=== PATIENT | male | born 1955 | race Caucasian/White ===

== ENCOUNTER 2018-02-17 15:31 | Observation (INO) | payer OTHER ==
[2018-02-17 16:28] VITALS: BMI 34.0
--- NOTE | 2018-02-17 17:07 | ED PDOC ---
Arrival/HPI - General Historian: Patient - History of Present Illness Narrative History of Present Illness (Text): 02/17/18 16:55 62 y o male Past medical history liver transplant (2005; on Procrit therapy), hypertension, DM2, hypothyroidism presents to the Emergency department for elevated blood pressure. States that he was not feeling well this am, reports feeling that the L side of his face feels hot, observed with a portable fan at bedside for relief of symptoms. Pt also reported b/l blurry vision this am that was intermittent throughout the day, currently resolved at this time. Pt states he checked his BP at 9:30 this am and it was 187/95. Pt states he also took am dose of Carvedilol 6.25 mg. States he later checked blood pressure at 1:38 pm and it was 213/134, was concerned and thus decided to come to the Emergency department. Denies associated headache, current vision changes, dizziness, syncope, chest pain, sob, nausea, vomiting, d/c, abd pain, urinary complaints, or other symptoms. 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 Past medical history: liver transplant (2005; on Procrit therapy), hypertension, DM2, hypothyroidism PSurgHx: liver transplant, removal of basal cell carcinoma on nose, hernia repair Allergies: PCN (rash) Home meds: Tacrolimus 0.5 mg, ASA 81, Tenofovir disoprox 300 mg, Vit D3, Synthroid 100 mcg, Omeprazole 20 mg, Carvedilol 6.25 mg bid, Clonidine 0.1 mg prn, Loratadine 10 mg prn, Tradozone 50 mg prn, Novolin 40-40-40, Trujeo 60-70 U/day Fam hx: denies Soc hx: former smoker quit 12 y ago; denies EtOH or illicit drug use PMD: Dr. Jeremy Rosario Time/Duration: Other (8 hrs) Symptom Onset: Sudden Symptom Course: Intermittent Quality: Other (Hot) Severity Level: Moderate Activities at Onset: Rest Context: Home <Jose Fairbanks - Last Filed: 02/17/18 19:34> <Lara Guzman - Last Filed: 02/17/18 19:40> - General Chief Complaint: High Blood Pressure Time Seen by Provider: 02/17/18 15:33 Past Medical History - Provider Review Nursing Documentation Reviewed: Yes - Travel History Have you recently traveled outside [place] w/in the past 3 mons?: No - Infectious Disease Hx of Infectious Diseases: None - Cardiac Hx Cardiac Disorders: Yes Hx Hypertension: Yes - Pulmonary Hx Respiratory Disorders: No - Neurological Hx Neurological Disorder: No - HEENT Hx HEENT Disorder: No - Renal Hx Renal Disorder: No - Endocrine/Metabolic Hx Endocrine Disorders: Yes Hx Diabetes Mellitus Type 2: Yes Hx Hypothyroidism: Yes - Hematological/Oncological Hx Hepatitis B: Yes Other/Comment: liver transplant 2005 - Integumentary Hx Dermatological Disorder: No - Musculoskeletal/Rheumatological Hx Musculoskeletal Disorders: Yes Hx Osteoarthritis: Yes - Gastrointestinal Hx Gastrointestinal Disorders: No - Genitourinary/Gynecological Hx Genitourinary Disorders: No - Psychiatric Hx Psychophysiologic Disorder: Yes Hx Depression: Yes Hx Substance Use: No - Surgical History Hx Liver Transplant: Yes (2005) Other/Comment: Basal cell carcinoma (nose) 2008. hernia repair 1990 - Anesthesia Hx Anesthesia: Yes Hx Anesthesia Reactions: No Hx Malignant Hyperthermia: No <Jose Fairbanks - Last Filed: 02/17/18 19:34> Family/Social History - Physician Review Nursing Documentation Reviewed: Yes Family/Social History: No Known Family HX Smoking Status: Former Smoker Hx Alcohol Use: No Hx Substance Use: No <Jose Fairbanks - Last Filed: 02/17/18 19:34> Allergies/Home Meds <Jose Fairbanks - Last Filed: 02/17/18 19:34> <Lara Guzman - Last Filed: 02/17/18 19:40> Allergies/Adverse Reactions: Allergies Penicillins Allergy (Verified 08/08/15 16:39) ANAPHYLAXIS Home Medications: Home Meds Medication Instructions Recorded Confirmed Ascorbic Acid [Vitamin C] 500 mg PO DAILY 05/16/14 05/16/14 Aspirin [Aspirin Low Dose] 81 mg PO DAILY 05/16/14 05/16/14 Calcium [Oyster Calcium] 500 mg PO BID 05/16/14 05/16/14 Canagliflozin [Invokana] 100 mg PO DAILY 05/16/14 05/16/14 Ergocalciferol (Vitamin D2) 50,000 iu PO QWK 05/16/14 05/16/14 [Vitamin D] Levothyroxine [Synthroid] 0.1 mg PO DAILY 05/16/14 05/16/14 Omeprazole 20 mg PO DAILY 05/16/14 05/16/14 Tacrolimus 1 mg PO BID 05/16/14 05/16/14 Vitamin B Complex & Vitamin C 1 tab PO DAILY 05/16/14 05/16/14 [Strovite] amLODIPine [Norvasc] 10 mg PO DAILY 05/16/14 05/16/14 Review of Systems - Physician Review All systems were reviewed & negative as marked: Yes - Review of Systems Constitutional: Fatigue. absent: Fevers, Night Sweats Eyes: Vision Changes ENT: absent: Hearing Changes, Tinnitus Respiratory: absent: SOB, Cough, Sputum, Wheezing Cardiovascular: absent: Chest Pain, Palpitations, Edema, Calf Pain, SPIVEY, Syncope Gastrointestinal: absent: Abdominal Pain, Stool Changes, Constipation, Diarrhea, Nausea, Vomiting Genitourinary Male: absent: Dysuria, Frequency, Urinary Output Changes Musculoskeletal: absent: Arthralgias, Back Pain, Myalgias Skin: absent: Rash, Pruritis Neurological: absent: Headache, Dizziness, Focal Weakness, Gait Changes, Speech Changes Endocrine: Diaphoresis Psychiatric: absent: Anxiety <Jose Fairbanks - Last Filed: 02/17/18 19:34> Physical Exam Vital Signs Reviewed: Yes Vital Signs Temp Pulse Resp BP Pulse Ox 02/17/18 16:28 98.1 F 76 18 175/80 H 95 Temperature: Afebrile Blood Pressure: Hypertensive Pulse: Regular Respiratory Rate: Normal Appearance: Positive for: Well-Appearing, Non-Toxic, Uncomfortable Pain Distress: None Mental Status: Positive for: Alert and Oriented X 3 - Systems Exam Head: Present: Atraumatic, Normocephalic. No: Tenderness Pupils: Present: PERRL Extroacular Muscles: Present: EOMI Conjunctiva: Present: Normal Mouth: Present: Moist Mucous Membranes Neck: Present: Normal Range of Motion. No: JVD, Lymphadenopathy Respiratory/Chest: Present: Clear to Auscultation, Good Air Exchange. No: Res piratory Distress, Accessory Muscle Use, Wheezes, Rales, Rhonchi Cardiovascular: Present: Regular Rate and Rhythm, Normal S1, S2. No: Murmurs, Rub, Gallop Abdomen: Present: Normal Bowel Sounds. No: Tenderness, Distention, Mass/Organomegaly Back: Present: Normal Inspection. No: Paraspinal Tenderness Upper Extremity: Present: Normal Inspection, Normal ROM, NORMAL PULSES, Neurovascularly Intact, Capillary Refill < 2s, Norm 2-Pt Discrimination. No: Cyanosis, Edema, Temperature Abnormalties Lower Extremity: Present: Normal Inspection, NORMAL PULSES, Normal ROM, Neurovas cularly Intact, Capillary Refill < 2 s. No: Edema, CALF TENDERNESS, Cyanosis, Tenderness, Temperature Abnormalties Neurological: Present: GCS=15, CN II-XII Intact, Speech Normal, Motor Func Grossly Intact, Normal Sensory Function, Normal Cerebellar Funct, Norm Deep Tendon Reflexes, Gait Normal, Memory Normal, Normal 2Pt Descrimination Skin: Present: Warm, Dry, Normal Color. No: Rashes Psychiatric: Present: Alert, Oriented x 3, Normal Insight, Normal Concentration <Jose Fairbanks - Last Filed: 02/17/18 19:34> Vital Signs Temp Pulse Resp BP Pulse Ox 02/17/18 18:00 74 18 172/78 H 96 02/17/18 16:28 98.1 F 76 18 175/80 H 95 <Lara Guzman - Last Filed: 02/17/18 19:40> Medical Decision Making ED Course and Treatment: 02/17/18 17:12 62 y o male Past medical history liver transplant (2005; on Procrit therapy), hypertension, DM2, hypothyroidism presents to the Emergency department for elevated blood pressure. Plan: -Labs -EKG -Chest X-ray -Head CT Will continue to monitor. BP 175/80. Will continue to follow. 02/17/18 19:29 CT negative for acute findings/hemorrhage. Troponin neg x1. CBC, CMP wnl. Endorsed case to medical administrative. Admission to be under Dr. Zhang's service. Pt to be admitted for hypertension urgency, TIA. - RAD Interpretation Radiology Orders: 02/17/18 16:49 CHEST ONE VIEW [RAD] Stat 02/17/18 16:52 HEAD W/CONTRAST [CT] Stat HEAD W/O CONTRAST [CT] Stat <Jose Fairbanks - Last Filed: 02/17/18 19:34> ED Course and Treatment: 02/17/18 19:39 Patient seen by resident and then evaluated by me. Complaining of blurry vision associated with hypertension today. Also complaining of numbness to L side of face. Neurologically intact. NIHSS:0. Given aspirin. BP spontaneously improved in emergency department and symptoms also improved. Will transfer to observation for further eval - Lab Interpretations Lab Results: 02/17/18 18:26 02/17/18 18:26 Lab Results 02/17/18 18:26: Sodium 138, Potassium 4.6, Chloride 102, Carbon Dioxide 28, Anion Gap 13, BUN 16, Creatinine 1.0, Est GFR ( Amer) > 60, Est GFR (Non- Af Amer) > 60, Random Glucose 166 H, Calcium 9.6, Magnesium 1.5 L, Total Bilirubin 0.5, AST 35, ALT 40, Alkaline Phosphatase 107, Troponin I < 0.01, Total Protein 8.1, Albumin 4.2, Globulin 3.9, Albumin/Globulin Ratio 1.1 02/17/18 18:26: PT 10.9, INR 0.96, APTT 28.4 02/17/18 18:26: WBC 9.8, RBC 6.74 H, Hgb 12.8 L, Hct 39.7 L, MCV 58.9 L, MCH 19.0 L, MCHC 32.2, RDW 17.8 H, Plt Count 173, Gran % 59.0, Lymph % (Auto) 28.1, Kleberg % (Auto) 5.9, Eos % (Auto) 6.9 H, Baso % (Auto) 0.1, Gran # 5.80, Lymph # (Auto) 2.8, Kleberg # (Auto) 0.6, Eos # (Auto) 0.7, Baso # (Auto) 0.01 - RAD Interpretation Radiology Orders: 02/17/18 16:49 CHEST ONE VIEW [RAD] Stat 02/17/18 16:52 HEAD W/O CONTRAST [CT] Stat - Medication Orders Current Medication Orders: Discontinued Medications Aspirin (Aspirin) 325 mg PO STAT STA Stop: 02/17/18 19:01 Magnesium Oxide (Mag-Ox) 400 mg PO STAT STA Stop: 02/17/18 18:57 Last Admin: 02/17/18 19:31 Dose: 400 mg <Lara Guzman - Last Filed: 02/17/18 19:40> Disposition/Present on Arrival - Present on Arrival Any Indicators Present on Arrival: Yes History of DVT/PE: No History of Uncontrolled Diabetes: Yes Urinary Catheter: No History of Decub. Ulcer: No History Surgical Site Infection Following: None - Disposition Have Diagnosis and Disposition been Completed?: Yes Disposition Time: 19:33 Patient Plan: Observation <Jose Fairbanks - Last Filed: 02/17/18 19:34> <Lara Guzman - Last Filed: 02/17/18 19:40> - Disposition Diagnosis: Hypertensive urgency, TIA (transient ischemic attack) Disposition: HOSPITALIZED Condition: GUARDED Forms: [facility] (Frisian)
--- NOTE | 2018-02-17 18:04 | CT ---
Date of service: 02/17/2018 PROCEDURE: CT HEAD WITHOUT CONTRAST. HISTORY: blurry vision, htn COMPARISON: Noncontrast head CT performed 01/11/15 TECHNIQUE: Axial computed tomography images were obtained through the head/brain without intravenous contrast. Radiation dose: Total exam DLP = 861.04 mGy-cm. This CT exam was performed using one or more of the following dose reduction techniques: Automated exposure control, adjustment of the mA and/or kV according to patient size, and/or use of iterative reconstruction technique. FINDINGS: HEMORRHAGE: No intracranial hemorrhage. BRAIN: Diffuse atrophy with prominence of the ventricles and sulci noted. No mass effect or edema. Intracranial atherosclerosis. Several small foci of air noted predominantly adjacent to the cavernous sinus. The bhakta-white matter differentiation appears intact. Please note that MRI with diffusion imaging is more sensitive in the detection of acute ischemic event. VENTRICLES: No hydrocephalus. CALVARIUM: Unremarkable. PARANASAL SINUSES: Unremarkable as visualized. No significant inflammatory changes. MASTOID AIR CELLS: Unremarkable as visualized. No inflammatory changes. OTHER FINDINGS: None. IMPRESSION: Generalized atrophy. Nonspecific white matter changes. Several small foci of air noted predominantly adjacent to the cavernous sinus; this can be seen in the setting recent IV injection. Correlate clinically.
[2018-02-17 18:32] LABS: BASO # 0.01 K/mm3 (0.0-2.0); BASO % 0.1 % (0.0-3.0); EOS # 0.7 (0.0-0.7); EOS % 6.9 % (1.5-5.0); HEMOGLOBIN 12.8 g/dL (14.0-18.0); LYMPH # 2.8 (1.2-3.4); LYMPH % 28.1 % (22.0-35.0); MEAN CELL VOLUME 58.9 fl (80.0-105.0); MEAN CORPUSCULAR HGB CONC 32.2 g/dl (31.0-37.0); MONO # 0.6 (0.1-0.6); MONO % 5.9 % (1.0-6.0); PLATELET COUNT 173 10^3/uL (120.0-450.0); RBC 6.74 10^6/uL (3.5-6.1); RED CELL DISTRIBUTION WIDTH 17.8 % (11.5-14.5); WHITE BLOOD COUNT 9.8 10^3/uL (4.5-11.0)
[2018-02-17 18:42] LABS: ALB/GLOB RATIO 1.1 (1.1-1.8); ALBUMIN 4.2 g/dL (3.0-4.8); ALT/SGPT 40 U/L (7-56); AST/SGOT 35 U/L (17-59); BLOOD UREA NITROGEN 16 mg/dL (7-21); CALCIUM 9.6 mg/dL (8.4-10.5); GFR NON-AFRICAN AMERICAN > 60; INR 0.96; PARTIAL THROMBOPLASTIN TIME 28.4 Seconds (25.1-36.5); PROTHROMBIN TIME 10.9 SECONDS (9.4-12.5)
[2018-02-17 18:53] LABS: TROPONIN I < 0.01 ng/mL
[2018-02-17] MEDS ORDERED: Magnesium Oxide 400 mg Tab UD PO STA (18:56)
--- NOTE | 2018-02-17 20:18 | CARD ---
APPROVED REPORT Date of service: 02/17/2018 EKG Measurement Heart [id number] <Conclusion> Normal sinus rhythm Possible Inferior infarct, age undetermined Abnormal ECG
[2018-02-17] MEDS ORDERED: Dextrose 50% SYRINGE Inj (50 ml) IV PRN (21:28)
--- NOTE | 2018-02-17 21:45 | CP.PCM.HP ---
<Griselda Davis - Last Filed: 02/18/18 05:55> History of Present Illness - History of Present Illness History of Present Illness: Griselda Daivs, PGY1 Hospital H&P This is a 62 year old male with PMH of DM2, HTN, hypothyroidism and liver transplant in 2005 on tacrolimus and procrit presenting to the ED for one day history of elevated blood pressure. He states his BP at 9am this morning was 1 87/95 and associated with B/L blurry vision and left facial warmth. He says his blurry vision is a symptoms he has not had in the past but admits to two year history of left facial warmth that worsens with elevated blood pressure. He took his morning dose of 6.25mg carvedilol and rechecked his BP in the afternoon which continued to be elevated at 213/134. 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 He says his BP has been on the higher side since this change. At time of examination patient says blurry vision symptoms had completely resolved. He denies CP, SOB, headaches, tinnitis, fevers, nausea, vomiting, back pain, abdominal pain, melena, hematochezia, hematemesis, urinary complaints, numbness, tingling, swelling, muscle weakness, sensory deficits, recent travel, sickness, trauma, and lifestyle changes including diet and weight. 12 point ROS noted above, otherwise unremarkable. PMD: Dr. Jeremy Rosario PMH: DM2, HTN, hypothyroidism and liver transplant in 2005 on tacrolimus and procrit SH: former smoker quit 12 y ago; denies EtOH or illicit drug use Sx: liver transplant in 2006, removal of basal cell carcinoma on nose, hernia repair All: PCN (rash) FH: [place] Meds: Tacrolimus 1.5 mg AM and 1mg PM, ASA 81 daily, Tenofovir disoprox 300 mg daily, Vit D3, Synthroid 100 mcg daily, Omeprazole 20 mg daily, Carvedilol 6.25 mg bid, Clonidine 0.1 mg prn (uses rarely), Loratadine 10 mg prn, Tradozone 50 mg prn, Novolin 40-40-40, insulin glargine 60 or 70 units per day Present on Admission - Present on Admission Any Indicators Present on Admission: Yes History of Uncontrolled Diabetes: Yes Past Patient History - Infectious Disease Hx of Infectious Diseases: None - Past Medical History & Family History Past Medical History?: Yes - Past Social History Smoking Status: Former Smoker - CARDIAC Hx Cardiac Disorders: Yes Hx Hypertension: Yes - PULMONARY Hx Respiratory Disorders: No - NEUROLOGICAL Hx Neurological Disorder: No - HEENT Hx HEENT Problems: No - RENAL Hx Chronic Kidney Disease: No - ENDOCRINE/METABOLIC Hx Endocrine Disorders: Yes Hx Diabetes Mellitus Type 2: Yes Hx Hypothyroidism: Yes - HEMATOLOGICAL/ONCOLOGICAL Hx Hepatitis B: Yes Other/Comment: liver transplant 2005 - INTEGUMENTARY Hx Dermatological Problems: No - MUSCULOSKELETAL/RHEUMATOLOGICAL Hx Musculoskeletal Disorders: Yes Hx Osteoarthritis: Yes - GASTROINTESTINAL Hx Gastrointestinal Disorders: No - GENITOURINARY/GYNECOLOGICAL Hx Genitourinary Disorders: No - PSYCHIATRIC Hx Psychophysiologic Disorder: Yes Hx Depression: Yes Hx Substance Use: No - SURGICAL HISTORY Hx Liver Transplant: Yes (2005) Other/Comment: Basal cell carcinoma (nose) 2008. hernia repair 1990 - ANESTHESIA Hx Anesthesia: Yes Hx Anesthesia Reactions: No Hx Malignant Hyperthermia: No Meds Allergies/Adverse Reactions: Allergies Allergy/AdvReac Type Severity Reaction Status Date / Time Penicillins Allergy ANAPHYLAXIS Verified 02/18/18 14:19 Physical Exam - Constitutional Appears: No Acute Distress - Head Exam Head Exam: ATRAUMATIC, NORMAL INSPECTION - Eye Exam Eye Exam: EOMI Pupil Exam: PERRL - ENT Exam ENT Exam: Mucous Membranes Moist - Neck Exam Neck exam: Positive for: Normal Inspection - Respiratory Exam Respiratory Exam: Clear to Auscultation Bilateral, NORMAL BREATHING PATTERN. absent: Accessory Muscle Use, Wheezes, Respiratory Distress - Cardiovascular Exam Cardiovascular Exam: REGULAR RHYTHM, +S1, +S2. absent: Tachycardia - GI/Abdominal Exam GI & Abdominal Exam: Normal Bowel Sounds, Soft. absent: Distended, Firm, Guarding, Tenderness - Extremities Exam Extremities exam: Positive for: calf tenderness, normal inspection, pedal pulses present Additional comments: muscle strength B/L in upper and lower extremities is 5/5, no motor or sensory deficits appreciated. Ambulating without difficulty. RLE has 5x5cm wound that has yellowish visible puss, no active bleeding. LLE has 7x5xm erythematous discoloration that is not actively bleeding and no pus appreciated. - Back Exam Back exam: NORMAL INSPECTION. absent: CVA tenderness (L), CVA tenderness (R) - Neurological Exam Neurological exam: Alert, CN II-XII Intact, Oriented x3 - Skin Skin Exam: Normal Color, Warm Results - Vital Signs Recent Vital Signs: Last Vital Signs Temp 98.1 F 02/17/18 16:28 Pulse 71 02/17/18 19:40 Resp 18 02/17/18 19:40 BP 157/89 H 02/17/18 19:40 Pulse Ox 96 02/17/18 19:40 - Labs Result Diagrams: 02/17/18 18:26 02/17/18 18:26 Labs: Laboratory Results - last 24 hr 02/17/18 02/17/18 02/17/18 18:26 18:26 18:26 WBC 9.8 RBC 6.74 H Hgb 12.8 L Hct 39.7 L MCV 58.9 L MCH 19.0 L MCHC 32.2 RDW 17.8 H Plt Count 173 Gran % 59.0 Lymph % (Auto) 28.1 Power % (Auto) 5.9 Eos % (Auto) 6.9 H Baso % (Auto) 0.1 Gran # 5.80 Lymph # (Auto) 2.8 Power # (Auto) 0.6 Eos # (Auto) 0.7 Baso # (Auto) 0.01 PT 10.9 INR 0.96 APTT 28.4 Sodium 138 Potassium 4.6 Chloride 102 Carbon Dioxide 28 Anion Gap 13 BUN 16 Creatinine 1.0 Est GFR ( Amer) > 60 Est GFR (Non-Af Amer) > 60 Random Glucose 166 H Calcium 9.6 Magnesium 1.5 L Total Bilirubin 0.5 AST 35 ALT 40 Alkaline Phosphatase 107 Troponin I < 0.01 Total Protein 8.1 Albumin 4.2 Globulin 3.9 Albumin/Globulin Ratio 1.1 Assessment & Plan - Assessment and Plan (Free Text) Assessment: This is a 62 year old male with PMH of DM2, HTN, hypothyroidism and liver transplant in 2005 on tacrolimus and procrit presenting to the ED for one day history of elevated blood pressure. Plan: Hypertensive urgency -had symptoms consistent with hypertensive emergency (blurry vision) earlier in the day -less likely TIA -allow permissive HTN for 24 hours up to 200/110 - hold coreg -echo done last month at [facility] - obtain records -carotid dopplers pending -neurology on consult, Dr. Sherwood -continue home hypertension medications - carvedilol 6.25mg BID -unsure why patient's losartan was stopped recently as patient has DM. Patient will likely need to be restarted for diabetic kidney protection and hypertension control. Previously on losartan 100mg daily -CT head is negative for acute findings, f/u official read -troponin, EKG reviewed, unremarkable Hx of liver transplant -continue procrit, tenofovir, tacrolimus -wound care for lower extremity wounds Hypomagnesia -repleted, f/u AM labs Anemia -microcytic, on procrit therapy -iron studies pending Hx of DM -levemir HS 20 units -insulin medium sliding scale ACHS -A1c pending Hx of hypothyroidism -continue home synthroid dose -TSH pending PPX/Diet -protonix and lovenox -HHD Patient seen and case discussed with attending, Dr. Bishop <Isak Bishop - Last Filed: 02/18/18 18:59> Results - Vital Signs Recent Vital Signs: Last Vital Signs Temp 98.1 F 02/18/18 14:00 Pulse 80 02/18/18 12:29 Resp 18 02/18/18 17:32 BP 152/74 H 02/18/18 17:00 Pulse Ox 96 02/18/18 17:00 - Labs Result Diagrams: 02/18/18 04:15 02/18/18 04:15 Labs: Laboratory Results - last 24 hr 02/18/18 02/18/18 02/18/18 04:15 04:15 04:15 WBC 7.2 D RBC 6.29 H Hgb 11.8 L Hct 36.8 L MCV 58.5 L MCH 18.8 L MCHC 32.1 RDW 17.5 H Plt Count 134 Gran % 51.1 Lymph % (Auto) 36.2 H Power % (Auto) 5.8 Eos % (Auto) 6.6 H Baso % (Auto) 0.3 Gran # 3.69 Lymph # (Auto) 2.6 Power # (Auto) 0.4 Eos # (Auto) 0.5 Baso # (Auto) 0.02 Sodium 135 Potassium 4.4 Chloride 102 Carbon Dioxide 26 Anion Gap 11 BUN 17 Creatinine 1.1 Est GFR ( Amer) > 60 Est GFR (Non-Af Amer) > 60 Random Glucose 359 H* D Hemoglobin A1c 10.6 H Calcium 9.0 Phosphorus 3.1 Magnesium 1.4 L Iron TIBC % Saturation Total Bilirubin 0.3 AST 25 ALT 32 Alkaline Phosphatase 100 Troponin I < 0.01 Total Protein 7.2 Albumin 3.7 Globulin 3.5 Albumin/Globulin Ratio 1.0 L Vitamin B12 304 TSH 3rd Generation 02/18/18 02/18/18 02/18/18 04:15 04:15 12:00 WBC RBC Hgb Hct MCV MCH MCHC RDW Plt Count Gran % Lymph % (Auto) Power % (Auto) Eos % (Auto) Baso % (Auto) Gran # Lymph # (Auto) Power # (Auto) Eos # (Auto) Baso # (Auto) Sodium Potassium Chloride Carbon Dioxide Anion Gap BUN Creatinine Est GFR ( Amer) Est GFR (Non-Af Amer) Random Glucose Hemoglobin A1c Calcium Phosphorus Magnesium Iron 45 TIBC 407 % Saturation 11 L Total Bilirubin AST ALT Alkaline Phosphatase Troponin I < 0.01 Total Protein Albumin Globulin Albumin/Globulin Ratio Vitamin B12 TSH 3rd Generation 1.48 Attending/Attestation - Attestation I have personally seen and examined this patient.: Yes I have fully participated in the care of the patient.: Yes I have reviewed all pertinent clinical information: Yes
[2018-02-17] MEDS ORDERED: Insulin Reg-MEDIUM-Coverage SC SCH (22:00)
[2018-02-18] MEDS: Insulin Detemir 100 units/ml Vial (Levemir) SC SCH ×2 (00:06→23:45)
[2018-02-18 05:06] LABS: BASO # 0.02 K/mm3 (0.0-2.0); BASO % 0.3 % (0.0-3.0); EOS # 0.5 (0.0-0.7); EOS % 6.6 % (1.5-5.0); GRAN # 3.69 (1.4-6.5); GRAN % 51.1 % (50.0-68.0); HEMOGLOBIN 11.8 g/dL (14.0-18.0); LYMPH # 2.6 (1.2-3.4); LYMPH % 36.2 % (22.0-35.0); MEAN CELL VOLUME 58.5 fl (80.0-105.0); MEAN CORPUSCULAR HEMOGLOBIN 18.8 pg (25.0-35.0); MEAN CORPUSCULAR HGB CONC 32.1 g/dl (31.0-37.0); MONO # 0.4 (0.1-0.6); MONO % 5.8 % (1.0-6.0); PLATELET COUNT 134 10^3/uL (120.0-450.0); RBC 6.29 10^6/uL (3.5-6.1); RED CELL DISTRIBUTION WIDTH 17.5 % (11.5-14.5); WHITE BLOOD COUNT 7.2 10^3/uL (4.5-11.0)
[2018-02-18 05:17] LABS: IRON 45 ug/dL (45-180)
[2018-02-18 05:27] LABS: % IRON SATURATION 11 % (20-55); TOTAL IRON BINDING CAPACITY 407 ug/dL (261-462)
[2018-02-18 05:32] LABS: TROPONIN I < 0.01 ng/mL
[2018-02-18] MEDS ORDERED: Pantoprazole 20 mg EC Tab PO SCH (06:00)
[2018-02-18] MEDS: Levothyroxine 100 MCG TAB PO SCH (06:06)
[2018-02-18 06:09] LABS: ALBUMIN 3.7 g/dL (3.0-4.8); ALT/SGPT 32 U/L (7-56); AST/SGOT 25 U/L (17-59); BLOOD UREA NITROGEN 17 mg/dL (7-21); GFR NON-AFRICAN AMERICAN > 60
[2018-02-18] MEDS ORDERED: Insulin Regular 1 UNITS/0.01 ML ML SC STA (06:14)
[2018-02-18] MEDS ORDERED: Insulin Regular 1 UNITS/0.01 ML ML ONE ×3 (06:26→18:01)
[2018-02-18] MEDS: Insulin Reg-HIGH-Coverage SC SCH ×3 (08:00→18:14)
[2018-02-18] MEDS: Pantoprazole 40 mg EC Tab PO SCH (09:07)
[2018-02-18] MEDS: Enoxaparin 40 mg Syringe SC SCH (09:09)
--- NOTE | 2018-02-18 10:33 | RAD ---
Date of service: 02/17/2018 PROCEDURE: CHEST RADIOGRAPH, 1 VIEW HISTORY: high blood pressure COMPARISON: 01/24/2015. FINDINGS: LUNGS: The lungs are well inflated and clear. There is mild pulmonary venous congestion. No focal consolidation. PLEURA: No pneumothorax or pleural effusion. CARDIOVASCULAR: Mild cardiomegaly. No aortic atherosclerotic calcifications present. OSSEOUS STRUCTURES: Within normal limits for the patient's age. VISUALIZED UPPER ABDOMEN: Normal. OTHER FINDINGS: None. IMPRESSION: No active pulmonary disease.
--- NOTE | 2018-02-18 11:46 | CP.PCM.CON ---
<Kenyon Covington - Last Filed: 02/18/18 16:04> History of Present Illness - History of Present Illness History of Present Illness: Neurology Progress Note for Dr. Campbell Reason for Consultation: r/o TIA Patient is a 62 yo M with PMH of DM, HTN, hypothyroidism, and liver transplant presents to [facility] [place] for elevated blood pressure. Patient states he he measured his blood pressure at home with SBP in the 200's. Patient was also experiencing blurred vision and facial warmth. 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 His BP medications were recently changed from losartan and am lodipine to carvedilol. Patient denies CP, SOB, n/v/d, abdominal pain, fever, chills, COMBS, dizziness, numbness, weakness, recent travel, or sickness. PMH: DM2, HTN, hypothyroidism and liver transplant in 2005 on tacrolimus and procrit Surg: liver transplant in 2005, removal of basal cell carcinoma on nose, hernia repair All: PCN (rash) SH: former smoker quit 12 y ago; denies EtOH or illicit drug use FH: NC Review of Systems - Review of Systems All systems: reviewed and no additional remarkable complaints except (12 point ROS reviewed and is negative other than what is stated in HPI.) Past Patient History - Infectious Disease Hx of Infectious Diseases: None - Past Medical History & Family History Past Medical History?: Yes - Past Social History Smoking Status: Former Smoker - CARDIAC Hx Cardiac Disorders: Yes Hx Hypertension: Yes - PULMONARY Hx Respiratory Disorders: No - NEUROLOGICAL Hx Neurological Disorder: No - HEENT Hx HEENT Problems: No - RENAL Hx Chronic Kidney Disease: No - ENDOCRINE/METABOLIC Hx Endocrine Disorders: Yes Hx Diabetes Mellitus Type 2: Yes Hx Hypothyroidism: Yes - HEMATOLOGICAL/ONCOLOGICAL Hx Hepatitis B: Yes Other/Comment: liver transplant 2005 - INTEGUMENTARY Hx Dermatological Problems: No - MUSCULOSKELETAL/RHEUMATOLOGICAL Hx Musculoskeletal Disorders: Yes Hx Osteoarthritis: Yes - GASTROINTESTINAL Hx Gastrointestinal Disorders: No - GENITOURINARY/GYNECOLOGICAL Hx Genitourinary Disorders: No - PSYCHIATRIC Hx Psychophysiologic Disorder: Yes Hx Depression: Yes Hx Substance Use: No - SURGICAL HISTORY Hx Liver Transplant: Yes (2005) Other/Comment: Basal cell carcinoma (nose) 2008. hernia repair 1990 - ANESTHESIA Hx Anesthesia: Yes Hx Anesthesia Reactions: No Hx Malignant Hyperthermia: No Meds Allergies/Adverse Reactions: Allergies Allergy/AdvReac Type Severity Reaction Status Date / Time Penicillins Allergy ANAPHYLAXIS Verified 02/18/18 14:19 - Medications Medications: Current Medications Aspirin (Ecotrin) 81 mg PO DAILY [facility] Last Admin: 02/18/18 09:09 Dose: 81 mg Carvedilol (Coreg) 6.25 mg PO BID [facility] Last Admin: 02/17/18 23:49 Dose: 6.25 mg Dextrose (Dextrose 50% Inj) 0 ml IV STAT PRN; Protocol PRN Reason: Hypoglycemia Protocol Enoxaparin Sodium (Lovenox) 40 mg SC DAILY [facility]; Protocol Last Admin: 02/18/18 09:09 Dose: 40 mg Dextrose (Dextrose 5% In Water 1000 Ml) 1,000 mls @ 0 mls/hr IV .Q0M PRN; Protocol PRN Reason: Hypoglycemia Protocol Insulin Detemir (Levemir) 20 unit SC [facility] Last Admin: 02/18/18 00:06 Dose: 20 unit Insulin Human Regular (Humulin R High) 0 units SC [facility]; Protocol Levothyroxine Sodium (Synthroid) 100 mcg PO 0600 [facility] Last Admin: 02/18/18 06:06 Dose: 100 mcg Losartan Potassium (Cozaar) 50 mg PO DAILY [facility] Pantoprazole Sodium (Protonix Ec Tab) 40 mg PO 0600 [facility] Last Admin: 02/18/18 09:07 Dose: 40 mg Tacrolimus (Prograf Cap) 1.5 mg PO DAILY [facility] Tacrolimus (Prograf Cap) 1 mg PO HS [facility] Tenofovir Disoproxil Fumarate (Viread) 300 mg PO DAILY [facility]; Protocol Trazodone HCl (Desyrel) 50 mg PO HS PRN PRN Reason: Sleep Physical Exam - Constitutional Appears: No Acute Distress - Head Exam Head Exam: NORMAL INSPECTION - Eye Exam Eye Exam: Normal appearance - ENT Exam ENT Exam: Mucous Membranes Moist - Neck Exam Neck exam: Positive for: Normal Inspection - Respiratory Exam Respiratory Exam: Clear to Auscultation Bilateral, NORMAL BREATHING PATTERN - Cardiovascular Exam Cardiovascular Exam: REGULAR RHYTHM - GI/Abdominal Exam GI & Abdominal Exam: Normal Bowel Sounds, Soft - Back Exam Back exam: NORMAL INSPECTION - Neurological Exam Neurological exam: Alert, CN II-XII Intact, Oriented x3, Reflexes Normal - Psychiatric Exam Psychiatric exam: Normal Affect, Normal Mood - Skin Skin Exam: Dry, Intact, Normal Color, Warm Results - Vital Signs Recent Vital Signs: Last Vital Signs Temp 98.4 F 02/18/18 04:17 Pulse 85 02/18/18 06:07 Resp 18 02/18/18 07:45 BP 162/84 H 02/18/18 06:07 Pulse Ox 100 02/18/18 06:07 - Labs Result Diagrams: 02/18/18 04:15 02/18/18 04:15 Labs: Laboratory Results - last 24 hr 02/17/18 02/17/18 02/17/18 18:26 18:26 18:26 WBC 9.8 RBC 6.74 H Hgb 12.8 L Hct 39.7 L MCV 58.9 L MCH 19.0 L MCHC 32.2 RDW 17.8 H Plt Count 173 Gran % 59.0 Lymph % (Auto) 28.1 Ashe % (Auto) 5.9 Eos % (Auto) 6.9 H Baso % (Auto) 0.1 Gran # 5.80 Lymph # (Auto) 2.8 Ashe # (Auto) 0.6 Eos # (Auto) 0.7 Baso # (Auto) 0.01 PT 10.9 INR 0.96 APTT 28.4 Sodium 138 Potassium 4.6 Chloride 102 Carbon Dioxide 28 Anion Gap 13 BUN 16 Creatinine 1.0 Est GFR ( Amer) > 60 Est GFR (Non-Af Amer) > 60 Random Glucose 166 H Calcium 9.6 Phosphorus Magnesium 1.5 L Iron TIBC % Saturation Total Bilirubin 0.5 AST 35 ALT 40 Alkaline Phosphatase 107 Troponin I < 0.01 Total Protein 8.1 Albumin 4.2 Globulin 3.9 Albumin/Globulin Ratio 1.1 TSH 3rd Generation 02/18/18 02/18/18 02/18/18 04:15 04:15 04:15 WBC 7.2 D RBC 6.29 H Hgb 11.8 L Hct 36.8 L MCV 58.5 L MCH 18.8 L MCHC 32.1 RDW 17.5 H Plt Count 134 Gran % 51.1 Lymph % (Auto) 36.2 H Ashe % (Auto) 5.8 Eos % (Auto) 6.6 H Baso % (Auto) 0.3 Gran # 3.69 Lymph # (Auto) 2.6 Ashe # (Auto) 0.4 Eos # (Auto) 0.5 Baso # (Auto) 0.02 PT INR APTT Sodium 135 Potassium 4.4 Chloride 102 Carbon Dioxide 26 Anion Gap 11 BUN 17 Creatinine 1.1 Est GFR ( Amer) > 60 Est GFR (Non-Af Amer) > 60 Random Glucose 359 H* D Calcium 9.0 Phosphorus 3.1 Magnesium 1.4 L Iron TIBC % Saturation Total Bilirubin 0.3 AST 25 ALT 32 Alkaline Phosphatase 100 Troponin I < 0.01 Total Protein 7.2 Albumin 3.7 Globulin 3.5 Albumin/Globulin Ratio 1.0 L TSH 3rd Generation 1.48 02/18/18 04:15 WBC RBC Hgb Hct MCV MCH MCHC RDW Plt Count Gran % Lymph % (Auto) Ashe % (Auto) Eos % (Auto) Baso % (Auto) Gran # Lymph # (Auto) Ashe # (Auto) Eos # (Auto) Baso # (Auto) PT INR APTT Sodium Potassium Chloride Carbon Dioxide Anion Gap BUN Creatinine Est GFR ( Amer) Est GFR (Non-Af Amer) Random Glucose Calcium Phosphorus Magnesium Iron 45 TIBC 407 % Saturation 11 L Total Bilirubin AST ALT Alkaline Phosphatase Troponin I Total Protein Albumin Globulin Albumin/Globulin Ratio TSH 3rd Generation Assessment & Plan - Assessment and Plan (Free Text) Assessment: 62 yo M with PMH of DM2, HTN, hypothyroidism, and liver transplant presents to [facility] [place] for hypertensive emergency with signs of end organ damage. Plan: - Head CT showed generalized atrophy and white matter changes - Carotid US ordered - BP control per primary Patient discussed in detail with Dr. Campbell. Chris Covington DO PGY2 <Abhi Campbell - Last Filed: 02/18/18 17:44> Meds - Medications Medications: Current Medications Aspirin (Ecotrin) 81 mg PO DAILY [facility] Last Admin: 02/18/18 09:09 Dose: 81 mg Carvedilol (Coreg) 6.25 mg PO BID [facility] Last Admin: 02/17/18 23:49 Dose: 6.25 mg Dextrose (Dextrose 50% Inj) 0 ml IV STAT PRN; Protocol PRN Reason: Hypoglycemia Protocol Enoxaparin Sodium (Lovenox) 40 mg SC DAILY [facility]; Protocol Last Admin: 02/18/18 09:09 Dose: 40 mg Dextrose (Dextrose 5% In Water 1000 Ml) 1,000 mls @ 0 mls/hr IV .Q0M PRN; Protocol PRN Reason: Hypoglycemia Protocol Insulin Detemir (Levemir) 20 unit SC [facility] Last Admin: 02/18/18 00:06 Dose: 20 unit Insulin Human Regular (Humulin R High) 0 units SC [facility]; Protocol Last Admin: 02/18/18 12:00 Dose: 7 units Levothyroxine Sodium (Synthroid) 100 mcg PO 0600 [facility] Last Admin: 02/18/18 06:06 Dose: 100 mcg Losartan Potassium (Cozaar) 50 mg PO DAILY [facility] Last Admin: 02/18/18 12:29 Dose: 50 mg Pantoprazole Sodium (Protonix Ec Tab) 40 mg PO 0600 [facility] Last Admin: 02/18/18 09:07 Dose: 40 mg Tacrolimus (Prograf Cap) 1.5 mg PO DAILY [facility] Last Admin: 02/18/18 12:30 Dose: 1.5 mg Tacrolimus (Prograf Cap) 1 mg PO HS [facility] Tenofovir Disoproxil Fumarate (Viread) 300 mg PO DAILY [facility]; Protocol Last Admin: 02/18/18 12:32 Dose: 300 mg Trazodone HCl (Desyrel) 50 mg PO HS PRN PRN Reason: Sleep Results - Vital Signs Recent Vital Signs: Last Vital Signs Temp 98.1 F 02/18/18 14:00 Pulse 80 02/18/18 12:29 Resp 15 02/18/18 17:00 BP 152/74 H 02/18/18 17:00 Pulse Ox 96 02/18/18 17:00 - Labs Result Diagrams: 02/18/18 04:15 02/18/18 04:15 Labs: Laboratory Results - last 24 hr 02/17/18 02/17/18 02/17/18 18:26 18:26 18:26 WBC 9.8 RBC 6.74 H Hgb 12.8 L Hct 39.7 L MCV 58.9 L MCH 19.0 L MCHC 32.2 RDW 17.8 H Plt Count 173 Gran % 59.0 Lymph % (Auto) 28.1 Ashe % (Auto) 5.9 Eos % (Auto) 6.9 H Baso % (Auto) 0.1 Gran # 5.80 Lymph # (Auto) 2.8 Ashe # (Auto) 0.6 Eos # (Auto) 0.7 Baso # (Auto) 0.01 PT 10.9 INR 0.96 APTT 28.4 Sodium 138 Potassium 4.6 Chloride 102 Carbon Dioxide 28 Anion Gap 13 BUN 16 Creatinine 1.0 Est GFR ( Amer) > 60 Est GFR (Non-Af Amer) > 60 Random Glucose 166 H Hemoglobin A1c Calcium 9.6 Phosphorus Magnesium 1.5 L Iron TIBC % Saturation Total Bilirubin 0.5 AST 35 ALT 40 Alkaline Phosphatase 107 Troponin I < 0.01 Total Protein 8.1 Albumin 4.2 Globulin 3.9 Albumin/Globulin Ratio 1.1 Vitamin B12 TSH 3rd Generation 02/18/18 02/18/18 02/18/18 04:15 04:15 04:15 WBC 7.2 D RBC 6.29 H Hgb 11.8 L Hct 36.8 L MCV 58.5 L MCH 18.8 L MCHC 32.1 RDW 17.5 H Plt Count 134 Gran % 51.1 Lymph % (Auto) 36.2 H Ashe % (Auto) 5.8 Eos % (Auto) 6.6 H Baso % (Auto) 0.3 Gran # 3.69 Lymph # (Auto) 2.6 Ashe # (Auto) 0.4 Eos # (Auto) 0.5 Baso # (Auto) 0.02 PT INR APTT Sodium 135 Potassium 4.4 Chloride 102 Carbon Dioxide 26 Anion Gap 11 BUN 17 Creatinine 1.1 Est GFR ( Amer) > 60 Est GFR (Non-Af Amer) > 60 Random Glucose 359 H* D Hemoglobin A1c 10.6 H Calcium 9.0 Phosphorus 3.1 Magnesium 1.4 L Iron TIBC % Saturation Total Bilirubin 0.3 AST 25 ALT 32 Alkaline Phosphatase 100 Troponin I < 0.01 Total Protein 7.2 Albumin 3.7 Globulin 3.5 Albumin/Globulin Ratio 1.0 L Vitamin B12 304 TSH 3rd Generation 02/18/18 02/18/18 02/18/18 04:15 04:15 12:00 WBC RBC Hgb Hct MCV MCH MCHC RDW Plt Count Gran % Lymph % (Auto) Ashe % (Auto) Eos % (Auto) Baso % (Auto) Gran # Lymph # (Auto) Ashe # (Auto) Eos # (Auto) Baso # (Auto) PT INR APTT Sodium Potassium Chloride Carbon Dioxide Anion Gap BUN Creatinine Est GFR ( Amer) Est GFR (Non-Af Amer) Random Glucose Hemoglobin A1c Calcium Phosphorus Magnesium Iron 45 TIBC 407 % Saturation 11 L Total Bilirubin AST ALT Alkaline Phosphatase Troponin I < 0.01 Total Protein Albumin Globulin Albumin/Globulin Ratio Vitamin B12 TSH 3rd Generation 1.48 Attending/Attestation - Attestation I have personally seen and examined this patient.: Yes I have fully participated in the care of the patient.: Yes I have reviewed all pertinent clinical information: Yes Notes (Text): 02/18/18 17:43 Likely hypertensive emergency. I agree with the assessment and plan. Manage per primary team.
[2018-02-18] MEDS: Insulin Regular 1 UNITS/0.01 ML ML ONE ×2 (12:00→18:05)
[2018-02-18] MEDS ORDERED: Pneumococcal 23-Valent Vaccine IM ONE (18:03)
[2018-02-18] MEDS ORDERED: Influenza Vaccine 60 mcg/0.5 mL SYR (4YR UP) IM ONE (18:03)
--- NOTE | 2018-02-18 18:44 | US ---
PROCEDURE: Bilateral carotid artery duplex ultrasound HISTORY: Carotid stenosis PHYSICIAN(S): Wei Kimball MD. TECHNIQUE: Duplex sonography and color-flow Doppler were used to evaluate the carotid bifurcations and limited segments of the vertebral arteries bilaterally. FINDINGS: There is diffuse mild heterogeneous plaque noted at the carotid bifurcations bilaterally. The peak systolic velocity in the proximal right internal carotid artery is 71 cm/sec. This corresponds to a 20 to 39% proximal right ICA stenosis. Normal systolic velocities are noted in the proximal right external carotid artery. There is antegrade flow in the right vertebral artery. The peak systolic velocity in the proximal left internal carotid artery is 98 cm/sec. This corresponds to a 20 to 39% proximal left ICA stenosis. Normal systolic velocities are noted in the proximal left external carotid artery. There is antegrade flow in the left vertebral artery. IMPRESSION: 1. Bilateral 20-39% proximal ICA stenoses. 2. Antegrade flow in both vertebral arteries.
--- NOTE | 2018-02-18 19:01 | CP.PCM.PN ---
<Cam Bo - Last Filed: 02/18/18 18:58> Subjective - Date & Time of Evaluation Date of Evaluation: 02/18/18 Time of Evaluation: 18:58 - Subjective Subjective: Cam Bo, PGY-1, Internal Medicine Progress Note for Dr. Wisdom Patient was seen and evaluated at bedside. Patient denied any acute overnight events. Patient reported improving blurred vision but still complained of some left sided facial warmth. Patient denies facial droop, dysarthria, dysphagia, headache, numbness/tingling, weakness, chest pain, heart palpitations, shortness of breath, abdominal pain, nausea, vomiting, constipation, diarrhea, dysuria, and hematuria. 12-point ROS was negative except for what was mentioned above. Objective - Vital Signs/Intake and Output Vital Signs (last 24 hours): Temp Pulse Resp BP Pulse Ox 98.1 F 80 18 152/74 H 96 02/18/18 14:00 02/18/18 12:29 02/18/18 17:32 02/18/18 17:00 02/18/18 17:00 - Medications Medications: Current Medications Aspirin (Ecotrin) 81 mg PO DAILY [facility] Last Admin: 02/18/18 09:09 Dose: 81 mg Carvedilol (Coreg) 6.25 mg PO BID [facility] Last Admin: 02/17/18 23:49 Dose: 6.25 mg Dextrose (Dextrose 50% Inj) 0 ml IV STAT PRN; Protocol PRN Reason: Hypoglycemia Protocol Enoxaparin Sodium (Lovenox) 40 mg SC DAILY [facility]; Protocol Last Admin: 02/18/18 09:09 Dose: 40 mg Dextrose (Dextrose 5% In Water 1000 Ml) 1,000 mls @ 0 mls/hr IV .Q0M PRN; Protocol PRN Reason: Hypoglycemia Protocol Insulin Detemir (Levemir) 20 unit SC HS [facility] Last Admin: 02/18/18 00:06 Dose: 20 unit Insulin Human Regular (Humulin R High) 0 units SC [facility]; Protocol Last Admin: 02/18/18 18:14 Dose: 7 units Levothyroxine Sodium (Synthroid) 100 mcg PO 0600 [facility] Last Admin: 02/18/18 06:06 Dose: 100 mcg Losartan Potassium (Cozaar) 50 mg PO DAILY [facility] Last Admin: 02/18/18 12:29 Dose: 50 mg Pantoprazole Sodium (Protonix Ec Tab) 40 mg PO 0600 [facility] Last Admin: 02/18/18 09:07 Dose: 40 mg Tacrolimus (Prograf Cap) 1.5 mg PO DAILY [facility] Last Admin: 02/18/18 12:30 Dose: 1.5 mg Tacrolimus (Prograf Cap) 1 mg PO HS [facility] Tenofovir Disoproxil Fumarate (Viread) 300 mg PO DAILY [facility]; Protocol Last Admin: 02/18/18 12:32 Dose: 300 mg Trazodone HCl (Desyrel) 50 mg PO HS PRN PRN Reason: Sleep - Labs Labs: 02/18/18 04:15 02/18/18 04:15 PT 10.9 SECONDS (9.4-12.5) 02/17/18 18:26 INR 0.96 02/17/18 18:26 APTT 28.4 Seconds (25.1-36.5) 02/17/18 18:26 - Constitutional Appears: Well, Non-toxic, No Acute Distress - Head Exam Head Exam: ATRAUMATIC, NORMAL INSPECTION, NORMOCEPHALIC - Eye Exam Eye Exam: EOMI Pupil Exam: PERRL - Respiratory Exam Respiratory Exam: Clear to Ausculation Bilateral - Cardiovascular Exam Cardiovascular Exam: REGULAR RHYTHM - GI/Abdominal Exam GI & Abdominal Exam: Soft, Normal Bowel Sounds. absent: Tenderness - Extremities Exam Extremities Exam: Full ROM - Neurological Exam Neurological Exam: Alert, Awake, CN II-XII Intact - Skin Skin Exam: Dry, Intact, Normal Color Assessment and Plan - Assessment and Plan (Free Text) Assessment: 62 year old male with past medical history of diabetes mellitus type II, Hypertension, hypothyroidism, and liver transplant presents for 1 day of increased blood pressure of 180s to 200s, left sided facial warmth, and blurry vision. Plan: Left sided facial numbness. Likely due to hypertensive emergency. Rule out stroke vs. TIA -Blood pressure on admission was 172-175 but patient reports home blood pressure of 213/134 -Head CT: no intracranial hemorrhage. generalized atrophy and white matter changes. -Carotid artery ultrasound: bilateral 20-39% proximal ICA stenoses. Anterograde flow in both vertebral arteries. -Troponinx3 was negative -Patient was started on permission HTN in case of unlikely stroke by night team. -We will now aggressively control blood pressure as neurology reports likely hypertensive emergency. -Patient started on cozaar 50 mg daily. Following cozaar administration, blood pressure has dropped to 146/76 -Continue with daily aspirin. History of hypothyroidism -Continue synthyroid but could be contributing to elevated blood pressure History of liver transplant -Continue with home tacrolimus and tenofovir Diabetes Mellitus Type II -HgbA1c: 10.6 -Accuchecks Q6 -Random glucose: 359 this morning -High dose sliding scale insulin ordered Hypomagnesia -M.4 -One dose of magnesium oxide Microcytic Anemia -Hgb: 11.8, MCV: 58.5 -Unremarkable iron, TIBC -Hemoglobin electrophoresis ordered to evaluate for cause of microcytic anemia. DVT prophylaxis: lovenox 40 mg daily GI prophylaxis: protonix 40 mg daily Patient plan discussed with Dr. Wisdom. <Karthik Wisdom - Last Filed: 02/19/18 08:52> Objective - Vital Signs/Intake and Output Vital Signs (last 24 hours): Temp Pulse Resp BP Pulse Ox 97.8 F 91 H 18 169/84 H 95 02/18/18 20:00 02/19/18 08:20 02/18/18 23:00 02/19/18 08:20 02/18/18 23:00 Intake and Output: 02/19/18 02/19/18 06:59 18:59 Intake Total 480 Balance 480 - Medications Medications: Current Medications Acetaminophen (Tylenol 325mg Tab) 650 mg PO Q6H PRN PRN Reason: Pain, Mild (1-3) Last Admin: 02/19/18 08:20 Dose: 650 mg Aspirin (Ecotrin) 81 mg PO DAILY [facility] Last Admin: 02/18/18 09:09 Dose: 81 mg Carvedilol (Coreg) 6.25 mg PO BID [facility] Last Admin: 02/17/18 23:49 Dose: 6.25 mg Dextrose (Dextrose 50% Inj) 0 ml IV STAT PRN; Protocol PRN Reason: Hypoglycemia Protocol Enoxaparin Sodium (Lovenox) 40 mg SC DAILY [facility]; Protocol Last Admin: 02/18/18 09:09 Dose: 40 mg Dextrose (Dextrose 5% In Water 1000 Ml) 1,000 mls @ 0 mls/hr IV .Q0M PRN; Protocol PRN Reason: Hypoglycemia Protocol Insulin Detemir (Levemir) 40 unit SC [facility] Insulin Human Regular (Humulin R High) 0 units SC [facility]; Protocol Last Admin: 02/19/18 08:19 Dose: 10 units Levothyroxine Sodium (Synthroid) 100 mcg PO 0600 [facility] Last Admin: 02/19/18 05:55 Dose: 100 mcg Losartan Potassium (Cozaar) 50 mg PO BID [facility] Pantoprazole Sodium (Protonix Ec Tab) 40 mg PO 0600 [facility] Last Admin: 02/19/18 05:55 Dose: 40 mg Tacrolimus (Prograf Cap) 1.5 mg PO DAILY [facility] Last Admin: 02/18/18 12:30 Dose: 1.5 mg Tacrolimus (Prograf Cap) 1 mg PO HS [facility] Last Admin: 02/18/18 23:47 Dose: 1 mg Tenofovir Disoproxil Fumarate (Viread) 300 mg PO DAILY [facility]; Protocol Last Admin: 02/18/18 12:32 Dose: 300 mg Trazodone HCl (Desyrel) 50 mg PO HS PRN PRN Reason: Sleep - Labs Labs: 02/19/18 06:00 02/19/18 06:00 PT 10.9 SECONDS (9.4-12.5) 02/17/18 18:26 INR 0.96 02/17/18 18:26 APTT 28.4 Seconds (25.1-36.5) 02/17/18 18:26 Attending/Attestation - Attestation I have personally seen and examined this patient.: Yes I have fully participated in the care of the patient.: Yes I have reviewed all pertinent clinical information, including history, physical exam and plan: Yes
[2018-02-18] MEDS ORDERED: Magnesium Oxide 400 mg Tab UD PO STA ×2 (19:09→23:55)
[2018-02-18 21:02] VITALS: TEMP 97.8
[2018-02-19] MEDS: Insulin Reg-HIGH-Coverage SC SCH ×3 (00:01→12:01)
[2018-02-19 00:18] VITALS: RESP 18; O2SAT 95
[2018-02-19] MEDS ORDERED: Insulin Regular 1 UNITS/0.01 ML ML SC ONE (03:30)
[2018-02-19] MEDS ORDERED: DiphenhydrAMINE 50 mg/ml Inj IVP STA (03:30)
[2018-02-19] MEDS: Pantoprazole 40 mg EC Tab PO SCH (05:55)
[2018-02-19] MEDS: Levothyroxine 100 MCG TAB PO SCH (05:55)
[2018-02-19] MEDS ORDERED: Insulin Detemir 100 units/ml Vial (Levemir) SC SCH ×2 (06:19→06:30)
--- NOTE | 2018-02-19 06:21 | CP.PCM.DIS ---
<Cam Bo - Last Filed: 02/19/18 12:46> Provider - Provider Date of Admission: 02/17/18 19:40 Attending physician: Collin Oneal MD Primary care physician: Jeremy Rosario MD Consults: 02/17/18 21:29 Neurology Consult Routine Comment: Consulting Provider: Ramy Sherwood Consulting Physician: Ramy Sherwood Reason for Consult: rule out TIA 02/17/18 21:45 Nursing Referral for Wound Care Routine Comment: Physician Instructions: Reason For Exam: B/L lower extremity wounds 02/18/18 18:03 Case Management Referral Routine Comment: LIVES ALONE,WOUND CARE Physician Instructions: Reason For Exam: EVALUATION Reason for Referral: [employer] Eval 02/18/18 18:09 Social Work Referral Routine Comment: WOUND CARE LIVES ALONE,AMBULATES WITH A CANE Physician Instructions: Reason For Exam: EVALUATION 02/18/18 18:16 Nursing Referral for Wound Care Routine Comment: PT GOES TO WOUND CENTER Physician Instructions: Reason For Exam: EVALUATION Time Spent in preparation of Discharge (in minutes): 60 Hospital Course - Lab Results Lab Results: Most Recent Lab Values WBC 7.2 10^3/uL (4.5-11.0) D 02/18/18 04:15 RBC 6.29 10^6/uL (3.5-6.1) H 02/18/18 04:15 Hgb 11.8 g/dL (14.0-18.0) L 02/18/18 04:15 Hct 36.8 % (42.0-52.0) L 02/18/18 04:15 MCV 58.5 fl (80.0-105.0) L 02/18/18 04:15 MCH 18.8 pg (25.0-35.0) L 02/18/18 04:15 MCHC 32.1 g/dl (31.0-37.0) 02/18/18 04:15 RDW 17.5 % (11.5-14.5) H 02/18/18 04:15 Plt Count 134 10^3/uL (120.0-450.0) 02/18/18 04:15 Gran % 51.1 % (50.0-68.0) 02/18/18 04:15 Lymph % (Auto) 36.2 % (22.0-35.0) H 02/18/18 04:15 Starr % (Auto) 5.8 % (1.0-6.0) 02/18/18 04:15 Eos % (Auto) 6.6 % (1.5-5.0) H 02/18/18 04:15 Baso % (Auto) 0.3 % (0.0-3.0) 02/18/18 04:15 Gran # 3.69 (1.4-6.5) 02/18/18 04:15 Lymph # (Auto) 2.6 (1.2-3.4) 02/18/18 04:15 Starr # (Auto) 0.4 (0.1-0.6) 02/18/18 04:15 Eos # (Auto) 0.5 (0.0-0.7) 02/18/18 04:15 Baso # (Auto) 0.02 K/mm3 (0.0-2.0) 02/18/18 04:15 PT 10.9 SECONDS (9.4-12.5) 02/17/18 18:26 INR 0.96 02/17/18 18:26 APTT 28.4 Seconds (25.1-36.5) 02/17/18 18:26 Sodium 135 mmol/L (132-148) 02/18/18 04:15 Potassium 4.4 mmol/L (3.6-5.0) 02/18/18 04:15 Chloride 102 mmol/L (98-107) 02/18/18 04:15 Carbon Dioxide 26 mmol/L (21-33) 02/18/18 04:15 Anion Gap 11 (10-20) 02/18/18 04:15 BUN 17 mg/dL (7-21) 02/18/18 04:15 Creatinine 1.1 mg/dl (0.8-1.5) 02/18/18 04:15 Est GFR ( Amer) > 60 02/18/18 04:15 Est GFR (Non-Af Amer) > 60 02/18/18 04:15 POC Glucose (mg/dL) 354 mg/dL (65-110) H 02/19/18 04:18 Random Glucose 359 mg/dL (70-110) H* D 02/18/18 04:15 Hemoglobin A1c 10.6 % (4.2-6.5) H 02/18/18 04:15 Calcium 9.0 mg/dL (8.4-10.5) 02/18/18 04:15 Phosphorus 3.1 mg/dL (2.5-4.5) 02/18/18 04:15 Magnesium 1.4 mg/dL (1.7-2.2) L 02/18/18 04:15 Iron 45 ug/dL (45-180) 02/18/18 04:15 TIBC 407 ug/dL (261-462) 02/18/18 04:15 % Saturation 11 % (20-55) L 02/18/18 04:15 Total Bilirubin 0.3 mg/dL (0.2-1.3) 02/18/18 04:15 AST 25 U/L (17-59) 02/18/18 04:15 ALT 32 U/L (7-56) 02/18/18 04:15 Alkaline Phosphatase 100 U/L (38-126) 02/18/18 04:15 Troponin I < 0.01 ng/mL 02/18/18 12:00 Total Protein 7.2 g/dL (5.8-8.3) 02/18/18 04:15 Albumin 3.7 g/dL (3.0-4.8) 02/18/18 04:15 Globulin 3.5 gm/dL 02/18/18 04:15 Albumin/Globulin Ratio 1.0 (1.1-1.8) L 02/18/18 04:15 Vitamin B12 304 pg/mL (239-931) 02/18/18 04:15 TSH 3rd Generation 1.48 mIU/mL (0.46-4.68) 02/18/18 04:15 - Hospital Course Hospital Course: Cam Bo, PGY-1, Internal Medicine Discharge Summary for Dr. Wisdom 62 year old male with past medical history of diabetes mellitus type II, Hypertension, hypothyroidism, and liver transplant presents for 1 day of increased blood pressure of 180s to 200s, left sided facial warmth, and blurry vision. Patient was admitted for hypertensive emergency vs. doubtful TIA or stroke. Head CT showed no intracranial hemorrhage with generalized atrophy and white matter changes. Carotid artery ultrasound showed bilateral 20-39% proximal ICA stenoses. Anterograde flow in both vertebral arteries. Troponinx3 was negative. Patient was started on permissive HTN protocol until patient was seen by neurology to rule out CVA. Neurology recommended that patient had hypertensive emergency and should have aggressive blood pressure control. Patient was initially started on losartan 50 mg daily. Patient's blood pressure was elevated at 182/91 this morning and home coreg 6.25 BID was restarted. Jennyfer ent was continued on losartan 50 mg daily. Amlodipine 10 mg daily was added to patient's medications. Last blood pressure was 131/71. Patient had high blood glucose level at 359 and was started on a high sliding scale insulin. Patient reported being on a home dose of levemir 50 U at night and was to have it started today. Patient was told to follow up with PCP in 1 week. Patient was told to restart home medications with inclusion of losartan, amlodipine, and coreg as ordered. Patient was told to return to the emergency department if patient had any recurring or worsening symptoms. This is a brief summary of the events that occurred at the hospital on this admission. For further details, please refer to hospital documentation. - Date & Time of H&P Date of H&P: 02/17/18 Time of H&P: 21:24 Discharge Exam - Head Exam Head Exam: ATRAUMATIC, NORMAL INSPECTION, NORMOCEPHALIC - Eye Exam Eye Exam: EOMI Pupil Exam: PERRL - ENT Exam ENT Exam: Mucous Membranes Dry - Respiratory Exam Respiratory Exam: Clear to PA & Lateral, NORMAL BREATHING PATTERN - Cardiovascular Exam Cardiovascular Exam: REGULAR RHYTHM - GI/Abdominal Exam GI & Abdominal Exam: Normal Bowel Sounds, Soft - Extremities Exam Extremities exam: full ROM - Neurological Exam Neurological exam: Alert, CN II-XII Intact, Oriented x3 Discharge Plan - Discharge Medications Prescriptions: RX: amLODIPine [Norvasc] 10 mg PO DAILY #30 tab RX: Carvedilol [Coreg] 1 tab PO BID #60 tab RX: Losartan [Cozaar] 100 mg PO DAILY #30 tab - Follow Up Plan Condition: GUARDED Disposition: HOME/ ROUTINE Instructions: Diabetes Diet , Hypertension (DC) Additional Instructions: Please follow up with PCP within one week. Keep a detailed log of your blood pressures at home prior to PCP appointment. Please take home medications as prescribed. Your new blood pressure medications include losartan 100 mg daily, coreg 6.25 mg twice a day and amlodipine 10 mg daily. Please return to the emergency department if you have any recurring or new symptoms. Referrals: Jeremy Rosario MD [Primary Care Provider] - <Karthik Wisdom - Last Filed: 02/19/18 17:00> Provider - Provider Date of Admission: 02/17/18 19:40 Attending physician: Collin Oneal MD Primary care physician: Jeremy Rosario MD Consults: 02/17/18 21:29 Neurology Consult Routine Comment: Consulting Provider: Ramy Sherwood Consulting Physician: Ramy Sherwood Reason for Consult: rule out TIA 02/17/18 21:45 Nursing Referral for Wound Care Routine Comment: Physician Instructions: Reason For Exam: B/L lower extremity wounds 02/18/18 18:03 Case Management Referral Routine Comment: LIVES ALONE,WOUND CARE Physician Instructions: Reason For Exam: EVALUATION Reason for Referral: [employer] Eval 02/18/18 18:09 Social Work Referral Routine Comment: WOUND CARE LIVES ALONE,AMBULATES WITH A CANE Physician Instructions: Reason For Exam: EVALUATION 02/18/18 18:16 Nursing Referral for Wound Care Routine Comment: PT GOES TO WOUND CENTER Physician Instructions: Reason For Exam: EVALUATION Hospital Course - Lab Results Lab Results: Most Recent Lab Values WBC 7.7 10^3/uL (4.5-11.0) 02/19/18 06:00 RBC 6.52 10^6/uL (3.5-6.1) H 02/19/18 06:00 Hgb 12.0 g/dL (14.0-18.0) L 02/19/18 06:00 Hct 38.3 % (42.0-52.0) L 02/19/18 06:00 MCV 58.7 fl (80.0-105.0) L 02/19/18 06:00 MCH 18.4 pg (25.0-35.0) L 02/19/18 06:00 MCHC 31.3 g/dl (31.0-37.0) 02/19/18 06:00 RDW 17.6 % (11.5-14.5) H 02/19/18 06:00 Plt Count 158 10^3/uL (120.0-450.0) 02/19/18 06:00 Gran % 52.4 % (50.0-68.0) 02/19/18 06:00 Lymph % (Auto) 35.4 % (22.0-35.0) H 02/19/18 06:00 Starr % (Auto) 4.7 % (1.0-6.0) 02/19/18 06:00 Eos % (Auto) 7.4 % (1.5-5.0) H 02/19/18 06:00 Baso % (Auto) 0.1 % (0.0-3.0) 02/19/18 06:00 Gran # 4.05 (1.4-6.5) 02/19/18 06:00 Lymph # (Auto) 2.7 (1.2-3.4) 02/19/18 06:00 Starr # (Auto) 0.4 (0.1-0.6) 02/19/18 06:00 Eos # (Auto) 0.6 (0.0-0.7) 02/19/18 06:00 Baso # (Auto) 0.01 K/mm3 (0.0-2.0) 02/19/18 06:00 Hemoglobinopathy Red Blood Count 6.25 Mill/mcL (4.20-5.80) H 02/18/18 15:00 Hemoglobinopathy Hct 37.7 % (38.5-50.0) L 02/18/18 15:00 Hemoglobinopathy Hgb 11.6 g/dL (13.2-17.1) L 02/18/18 15:00 Hemoglobinopathy MCV 60.4 fL (80.0-100.0) L 02/18/18 15:00 Hemoglobinopathy MCH 18.5 pg (27.0-33.0) L 02/18/18 15:00 Hemoglobinopathy RDW 18.8 % (11.0-15.0) H 02/18/18 15:00 PT 10.9 SECONDS (9.4-12.5) 02/17/18 18:26 INR 0.96 02/17/18 18:26 APTT 28.4 Seconds (25.1-36.5) 02/17/18 18:26 Sodium 138 mmol/L (132-148) 02/19/18 06:00 Potassium 4.5 mmol/L (3.6-5.0) 02/19/18 06:00 Chloride 104 mmol/L (98-107) 02/19/18 06:00 Carbon Dioxide 25 mmol/L (21-33) 02/19/18 06:00 Anion Gap 13 (10-20) 02/19/18 06:00 BUN 20 mg/dL (7-21) 02/19/18 06:00 Creatinine 1.0 mg/dl (0.8-1.5) 02/19/18 06:00 Est GFR ( Amer) > 60 02/19/18 06:00 Est GFR (Non-Af Amer) > 60 02/19/18 06:00 POC Glucose (mg/dL) 332 mg/dL (65-110) H 02/19/18 14:43 Random Glucose 372 mg/dL (70-110) H* 02/19/18 06:00 Hemoglobin A1c 10.6 % (4.2-6.5) H 02/18/18 04:15 Calcium 9.2 mg/dL (8.4-10.5) 02/19/18 06:00 Phosphorus 3.1 mg/dL (2.5-4.5) 02/18/18 04:15 Magnesium 1.4 mg/dL (1.7-2.2) L 02/18/18 04:15 Iron 45 ug/dL (45-180) 02/18/18 04:15 TIBC 407 ug/dL (261-462) 02/18/18 04:15 % Saturation 11 % (20-55) L 02/18/18 04:15 Total Bilirubin 0.5 mg/dL (0.2-1.3) 02/19/18 06:00 AST 26 U/L (17-59) 02/19/18 06:00 ALT 43 U/L (7-56) 02/19/18 06:00 Alkaline Phosphatase 105 U/L (38-126) 02/19/18 06:00 Troponin I < 0.01 ng/mL 02/18/18 12:00 Total Protein 7.5 g/dL (5.8-8.3) 02/19/18 06:00 Albumin 3.9 g/dL (3.0-4.8) 02/19/18 06:00 Globulin 3.5 gm/dL 02/19/18 06:00 Albumin/Globulin Ratio 1.1 (1.1-1.8) 02/19/18 06:00 Triglycerides 179 mg/dL (35-160) H 02/19/18 06:00 Cholesterol 100 mg/dL (130-200) L 02/19/18 06:00 LDL Cholesterol Direct 69 mg/dL (0-129) 02/19/18 06:00 HDL Cholesterol 24 mg/dL (29-60) L 02/19/18 06:00 Vitamin B12 304 pg/mL (239-931) 02/18/18 04:15 TSH 3rd Generation 1.48 mIU/mL (0.46-4.68) 02/18/18 04:15 Attending/Attestation - Attestation I have personally seen and examined this patient.: Yes I have fully participated in the care of the patient.: Yes I have reviewed all pertinent clinical information, including history, physical exam and plan: Yes Notes (Text): Patient seen and examined with the residents, agree with above bp better controlled; instructed on medication compliance on discharge and close outpt f/u headache and blurred vision resolved
[2018-02-19 06:43] LABS: BASO # 0.01 K/mm3 (0.0-2.0); BASO % 0.1 % (0.0-3.0); EOS # 0.6 (0.0-0.7); EOS % 7.4 % (1.5-5.0); GRAN # 4.05 (1.4-6.5); GRAN % 52.4 % (50.0-68.0); LYMPH # 2.7 (1.2-3.4); LYMPH % 35.4 % (22.0-35.0); MEAN CELL VOLUME 58.7 fl (80.0-105.0); MEAN CORPUSCULAR HEMOGLOBIN 18.4 pg (25.0-35.0); MEAN CORPUSCULAR HGB CONC 31.3 g/dl (31.0-37.0); MONO # 0.4 (0.1-0.6); MONO % 4.7 % (1.0-6.0); PLATELET COUNT 158 10^3/uL (120.0-450.0); RBC 6.52 10^6/uL (3.5-6.1); RED CELL DISTRIBUTION WIDTH 17.6 % (11.5-14.5); WHITE BLOOD COUNT 7.7 10^3/uL (4.5-11.0)
[2018-02-19 07:28] LABS: ALB/GLOB RATIO 1.1 (1.1-1.8); ALBUMIN 3.9 g/dL (3.0-4.8); ALT/SGPT 43 U/L (7-56); AST/SGOT 26 U/L (17-59); BLOOD UREA NITROGEN 20 mg/dL (7-21); CALCIUM 9.2 mg/dL (8.4-10.5); GFR NON-AFRICAN AMERICAN > 60
[2018-02-19 09:40] LABS: HDL CHOLESTEROL 24 mg/dL (29-60)
[2018-02-19 09:51] LABS: LDL CHOLESTEROL 69 mg/dL (0-129)
[2018-02-19] MEDS ORDERED: CHOLECALCIFEROL 5000 UNIT PO SCH ×2 (10:00)
[2018-02-19] MEDS ORDERED: Levothyroxine 100 MCG TAB PO SCH (10:00)
[2018-02-19] MEDS: Enoxaparin 40 mg Syringe SC SCH (10:36)
[2018-02-19 10:40] VITALS: BP 131/71
[2018-02-19 11:58] LABS: MCH 18.5 pg (27.0-33.0); MCV 60.4 fL (80.0-100.0)
[2018-02-19 15:00] VITALS: PULSE 70
[2018-02-23 00:02] LABS: HEMOGLOBIN A 94.3 Percent (>96.0); HEMOGLOBIN A2 4.7 Percent (1.8-3.5)
== END 2018-02-19 16:18 | disposition home or self-care (01) ==
LOC: ED 15:31 → ERH 19:40 → 3RSO 02-19 00:40
PROVIDERS: ADMIT Hospitalist; ATTEND Hospitalist
DX: I16.1 Hypertensive emergency (principal); I10 Essential (primary) hypertension; Z94.4 Liver transplant status; E03.9 Hypothyroidism, unspecified; E11.9 Type 2 diabetes mellitus without complications; Z79.899 Other long term (current) drug therapy; Z79.82 Long term (current) use of aspirin; Z87.891 Personal history of nicotine dependence; Z85.828 Personal history of other malignant neoplasm of skin
CPT/HCPCS: 36415; 70450; 71045; 80053; 80061; 82607; 82948; 83021; 83036; 83540; 83550; 83735; 84100; 84443; 84484; 85014; 85018; 85025; 85041; 85610; 85730; 87081; 93005; 93880; 96372; 99285; G0378; J0360; J1200; J1650; J7507